=== PATIENT | male | born 1950 ===

== ENCOUNTER 2017-09-25 09:47 | Day surgery (SDC) | payer MEDICARE, MEDICAID ==
[2017-09-25 10:30] VITALS: BMI 25.9
[2017-09-25 10:47] VITALS: O2SAT 100
[2017-09-25] MEDS ORDERED: Propofol 10 mg/ml Inj (20 ML) ONE ×3 (11:55→12:49)
[2017-09-25] MEDS ORDERED: Lidocaine Hydrochloride 5 ML INJ ONE (11:55)
[2017-09-25] MEDS ORDERED: Lactated Ringer's 1,000 ML IV ONE (12:15)
[2017-09-25 13:54] VITALS: BP 123/69; PULSE 61; RESP 18; TEMP 97.2
== END 2017-09-25 13:50 | disposition home or self-care (01) ==
LOC: C.ENDO 09:47
PROVIDERS: ATTEND Internal Medicine Gastroenterology
DX: Z12.11 Encounter for screening for malignant neoplasm of colon (principal); D12.5 Benign neoplasm of sigmoid colon; D12.3 Benign neoplasm of transverse colon; K62.1 Rectal polyp; K64.8 Other hemorrhoids
CPT/HCPCS: 45385; 88305; J2704; J2765; J7120

== ENCOUNTER 2017-12-31 10:22 | Inpatient (IN) | payer MEDICARE, OTHER ==
[2017-12-31 11:14] LABS: BASO % 0.6 % (0.0-2.0); EOS # 0.2 K/uL (0.0-0.7); EOS % 2.5 % (0.0-4.0); HEMOGLOBIN 14.5 g/dL (12.0-18.0); LYMPH % 26.6 % (20.0-40.0); MEAN CORPUSCULAR HEMOGLOBIN 32.2 pg (27.0-31.0); MEAN CORPUSCULAR HGB CONC 33.9 g/dL (33.0-37.0); MEAN PLATELET VOLUME 8.3 fL (7.2-11.7); MONO # 0.5 K/uL (0.0-0.8); NEUT # 4.6 K/uL (1.8-7.0); NEUT % 63.3 % (50.0-75.0); RBC 4.49 Mil/uL (4.40-5.90); RED CELL DISTRIBUTION WIDTH 13.6 % (11.5-14.5); WHITE BLOOD COUNT 7.3 K/uL (4.8-10.8)
[2017-12-31 11:21] LABS: PROTHROMBIN TIME 10.8 SECONDS (9.7-12.2)
--- NOTE | 2017-12-31 11:21 | CT ---
Date of service: 12/31/2017 PROCEDURE: CT HEAD WITHOUT CONTRAST. HISTORY: Code Stroke COMPARISON: None available. TECHNIQUE: Axial computed tomography images were obtained through the head/brain without intravenous contrast. Radiation dose: Total exam DLP = 1064.29 mGy-cm. This CT exam was performed using one or more of the following dose reduction techniques: Automated exposure control, adjustment of the mA and/or kV according to patient size, and/or use of iterative reconstruction technique. FINDINGS: HEMORRHAGE: No intracranial hemorrhage. BRAIN: Normal mcgregor-white matter differentiation and density are appreciated throughout the cerebrum and cerebellum with the brainstem appearing unremarkable as well. There is no mass effect. There is no suspicious extra-axial fluid collection and the midline brain anatomy appears diffusely unremarkable. VENTRICLES: Unremarkable. No hydrocephalus. CALVARIUM: Unremarkable. PARANASAL SINUSES: Unremarkable as visualized. No significant inflammatory changes. MASTOID AIR CELLS: Unremarkable as visualized. No inflammatory changes. OTHER FINDINGS: None. IMPRESSION: Normal CT of the Head. Findings discussed with Dr. Valdivia with written down and read back verification 12/31/2017 11:14 a.m..
[2017-12-31 11:26] LABS: ALB/GLOB RATIO 1.4 (1.0-2.1); ALBUMIN 4.1 g/dL (3.5-5.0); ALT/SGPT 29 U/L (21-72); AST/SGOT 21 U/L (17-59); BLOOD UREA NITROGEN 18 mg/dL (9-20); CALCIUM 9.3 mg/dl (8.6-10.4); GFR NON-AFRICAN AMERICAN > 60; HDL CHOLESTEROL 57 mg/dL (30-70)
[2017-12-31 11:37] LABS: LDL CHOLESTEROL 147 mg/dL (0-129)
--- NOTE | 2017-12-31 12:14 | C.PDOC ---
History Of Present Illness 67 year old male presents to the ER as a code stroke requiring my immediate attention, sent to CT prior to my evaluation. Patient complains of left arm numbness around 0300 that happened upon awakening to go to the bathroom. Patient woke up today with arm numbness still present, had a cup of coffee and decided to come in. Denies chest pain, SOB, vision change, nausea, vomiting, headache, or weakness. Time Seen by Provider: 12/31/17 11:03 Chief Complaint (Nursing): Weakness/Neurological Deficit History Per: Patient History/Exam Limitations: no limitations Onset/Duration Of Symptoms: Hrs Current Symptoms Are (Timing): Still Present Activity At Onset Of Symptoms: Other (Had just woken up) Seizure Or Post-ictal Symptoms: None Fall Associated With With Symptoms: No Recent travel outside of the [place]: No - Symptoms Of CVA Associated Symptoms: denies: Impaired Speech, Seizure Activity, New Vision Deficit(Left), New Vision Deficit(Right), Decreased Ability To Walk, New Confusion Character Of Deficits: Left: Sensory Loss, Arm: Sensory Loss Past Medical History Reviewed: Historical Data, Nursing Documentation, Vital Signs Vital Signs: Last Vital Signs Temp 98.3 F 12/31/17 10:56 Pulse 76 12/31/17 12:40 Resp 16 12/31/17 12:40 BP 154/68 H 12/31/17 12:40 Pulse Ox 100 12/31/17 12:42 - Medical History PMH: Arthritis, Gastritis, Hypercholesterolemia (NOT TAKING MEDS) Denies: Chronic Kidney Disease Surgical History: Appendectomy, Endoscopy Family History: States: Unknown Family Hx - Social History Hx Alcohol Use: No Hx Substance Use: No Review Of Systems Constitutional: Negative for: Fever, Chills Eyes: Negative for: Vision Change Cardiovascular: Negative for: Chest Pain, Palpitations Respiratory: Negative for: Cough, Shortness of Breath Gastrointestinal: Negative for: Nausea, Vomiting Musculoskeletal: Negative for: Neck Pain Neurological: Positive for: Numbness. Negative for: Weakness Physical Exam - Physical Exam Appears: Non-toxic Skin: Normal Color, Warm, Dry Head: Atraumatic, Normacephalic Eye(s): bilateral: Normal Inspection, PERRL, EOMI Nose: Normal Oral Mucosa: Moist Neck: Normal, Supple Chest: Symmetrical, No Tenderness Cardiovascular: Rhythm Regular Respiratory: Normal Breath Sounds, No Rales, No Rhonchi, No Wheezing Gastrointestinal/Abdominal: Soft, No Tenderness Back: No CVA Tenderness Extremity: Normal ROM (x4) Neurological/Psych: Oriented x3, Normal Speech, Normal Cognition, Normal Cranial Nerves, Normal Motor, Other (Slight decreased sensation to left upper extremity) Gait: Steady ED Course And Treatment - Laboratory Results Result Diagrams: 12/31/17 11:09 12/31/17 11:09 ECG: Interpreted By Me, Viewed By Me ECG Rhythm: Sinus Rhythm ECG Interpretation: Normal Interpretation Of ECG: Poor R wave progression, no ST/T wave abnormalities Rate From EC O2 Sat by Pulse Oximetry: 100 (room air) Pulse Ox Interpretation: Normal NIHSS Stroke Scale 2 - Date/Time Evaluation Performed Date Performed: 12/31/17 When Was NIHSS Performed: Baseline - How Severe is the Stroke Level of Consciousness: 0=Alert LOC to Questions: 0=Both comments correct LOC to commands: 0=Obeys both correctly Best Gaze: 0=Normal Visual: 0=No visual loss Facial: 0=Normal Motor Arm - Left: 0=No drift Motor Arm - Right: 0=No drift Motor Leg - Left: 0=No drift Motor Leg - Right: 0=No drift Limb Ataxia: 0=Absent Sensory: 1=Mild to moderate loss Best Language: 0=No aphasia Dysarthia: 0=Normal articulation Extinction & Inattention (Neglect): 0=Normal, no object Score: 1 Severity Of Stroke: 1-4 = Minor Stroke (patient symptoms are minor and no focal weakness, discussed with Dr. Bullock and given vague symptoms the risk of tpa outweighs the benefit and no tpa administerd at this time.) Medical Decision Making Medical Decision Making: Assessment: CVA Case discussed with Dr. Bullock who states patient is not a TPA candidate. Disposition Discussed With : Emiliano Navarrete Doctor Will See Patient In The: Hospital Counseled Patient/Family Regarding: Studies Performed, Diagnosis - Disposition Disposition: HOSPITALIZED Disposition Time: 12:13 Condition: FAIR - Clinical Impression Clinical Impression: CVA (cerebral vascular accident) - Scribe Statement The provider has reviewed the documentation as recorded by the Scribe Willie Hopper All medical record entries made by the Scribe were at my direction and personally dictated by me. I have reviewed the chart and agree that the record accurately reflects my personal performance of the history, physical exam, medical decision making, and the department course for this patient. I have also personally directed, reviewed, and agree with the discharge instructions and disposition.
--- NOTE | 2017-12-31 12:20 | RAD ---
Date of service: 12/31/2017 HISTORY: Code Stroke COMPARISON: No prior. FINDINGS: LUNGS: Biapical fibrotic changes seen at the right greater left pulmonary apices. No alveolitis bilaterally. PLEURA: No significant pleural effusion identified, no pneumothorax apparent. CARDIOVASCULAR: Normal. OSSEOUS STRUCTURES: No significant abnormalities. VISUALIZED UPPER ABDOMEN: Normal. OTHER FINDINGS: None. IMPRESSION: No acute cardiopulmonary findings as discussed above. Biapical fibrotic changes are seen at the right greater than left.
--- NOTE | 2017-12-31 12:36 | CT ---
Date of service: 12/31/2017 PROCEDURE: CT Angiography of the Brain and Neck. HISTORY: arm numbness COMPARISON: None available. TECHNIQUE: CT angiography of the intracranial and neck arteries was performed. Coronal and sagittal maximum intensity projection reformatted images were generated. Contrast Dose: Visipaque 320, 100 cc Radiation dose:Total exam DLP = 632.89 mGy-cm. This CT exam was performed using one or more of the following dose reduction techniques: Automated exposure control, adjustment of the mA and/or kV according to patient size, and/or use of iterative reconstruction technique. FINDINGS: INTERNAL CEREBRAL ARTERIES: Unremarkable. The skull base, petrous, cavernous and supraclinoid segments are bilaterally widely patent. ANTERIOR CEREBRAL ARTERIES: Unremarkable. A1 and A2 segments are widely patent. Smaller distal branches unremarkable, as visualized. MIDDLE CEREBRAL ARTERIES: Unremarkable. M1 and M2 segments are widely patent. Perisylvian branches grossly symmetric. POSTERIOR CIRCULATION: Basilar Artery: Unremarkable. Distal Vertebral Arteries: Right dominant vertebrobasilar circulation. Posterior Cerebral Arteries: Unremarkable. Posterior Inferior Cerebellar Arteries: Unremarkable. NECK CTA: Common Carotid arteries: The bilateral common carotid appear widely patent from their origins to their bifurcations with no significant stenosis appreciated. No evidence to suggest common carotid artery dissection. Internal Carotid arteries: No significant stenosis is appreciated throughout the cervical internal carotid artery segments bilaterally and there is no evidence of dissection either. External Carotid arteries: Appear unremarkable bilaterally. Vertebral arteries: The bilateral vertebral arteries appear normal in caliber from their origins to their distal cervical segments. No significant stenosis or definite pattern of dissection. ANEURYSM/ VASCULAR MALFORMATIONS: None. OTHER FINDINGS: COPD incidentally noted. IMPRESSION: Unremarkable CT Angiography of the Brain and Neck.
[2017-12-31 13:25] VITALS: RESP 20
--- NOTE | 2017-12-31 13:32 | MRI ---
Date of service: 12/31/2017 PROCEDURE: MRI BRAIN WITHOUT CONTRAST HISTORY: cva COMPARISON: None available. TECHNIQUE: Multiplanar, multisequence MR images of the brain were obtained without intravenous contrast enhancement. FINDINGS: HEMORRHAGE: None DWI: No evidence of an acute or early subacute infarction. BRAIN PARENCHYMA: Minimal subcortical and periventricular white-matter change are appreciated at the bilateral frontal lobes reflecting trace chronic microangiopathy. There is also limited expansion of the ventricular sulcal and cisternal spaces compatible diffuse cerebral atrophy. These findings are proportional and are appropriate for the patient's stated age. There is no mass effect or cortical edema. Good corticomedullary differentiation is appreciated throughout the cerebrum and cerebellum. Brainstem is unremarkable appearing. No suspicious extra-axial collection appreciated. Midline brain anatomy appears grossly nonfocal. VENTRICLES: Unremarkable. No hydrocephalus. CRANIUM: Unremarkable. ORBITS: Grossly unremarkable. PARANASAL SINUSES/MASTOIDS: Right mastoid effusions identified. VASCULAR SYSTEM: Skull base flow voids intact. OTHER FINDINGS: None. IMPRESSION: Age-appropriate age related neuro degenerative changes. No definite acute intracranial findings by standard MRI criteria.
--- NOTE | 2017-12-31 14:26 | CP.PCM.HP ---
<Fabio Haro - Last Filed: 12/31/17 15:10> History of Present Illness - History of Present Illness History of Present Illness: PGY-[address] and [address] Navarrete Patient is a 67 year old male with PMHx arthritis, gastritis, HLD, who presented to ED following an epidsode of left arm numbness. The patient states that he woke up around 03:00 last night and to go to the bathroom and noticed that his left arm felt numb, from shoulder to finger tips. Patient went back to bed after noticing this and then woke up this morning with left arm numbness as well as weakness. In addition, the patient states that he was also having epigastric pain in the morning. Patient did not endorse any nausea, vomiting, diarrhea, fevers, or chills. At the time of examination, patient states that the arm weakness and abdominal pain have completely resolved, however he still is having numbness of the left arm. Of significance, patient has been a heavy smoker (about 1 pack/day) for 25-30 years. Pt's mother from [place] at the age of 71. Pt denies any chest pain, shortness of breath, nausea, vomiting , abdominal pain, diarrhea, headache, dizziness, weakness. SurgHx: Appendectomy Medical Hx: Arthritis, gastritis, HLD Allergies: NKA Social : Heavy smoker for 25-30 years, occasional alcohol consumption (latasha) Family history: Mother - [place] (75) Home Medications: Vitamin D PMD: Dr. Dunlap Code: Full Code Present on Admission - Present on Admission Any Indicators Present on Admission: No Review of Systems - Constitutional Constitutional: absent: Headache, Night Sweats - EENT Eyes: absent: Blurred Vision, Change in Vision Nose/Mouth/Throat: absent: Nasal Congestion, Nasal Discharge - Respiratory Respiratory: absent: Cough, Dyspnea - Gastrointestinal Gastrointestinal: absent: Abdominal Pain (epigastric pain resolved), Diarrhea, Nausea - Genitourinary Genitourinary: absent: Hematuria, Pyuria - Musculoskeletal Musculoskeletal: absent: Neck Pain, Stiffness - Neurological Neurological: Numbness. absent: Dizziness, Weakness (L arm weakness resolved) Additional comments: +left arm numbness - Psychiatric Psychiatric: absent: Anxiety, Depression Past Patient History - Past Medical History & Family History Past Medical History?: Yes - Past Social History Smoking Status: Light Smoker < 10 Cigarettes Daily - CARDIAC Hx Cardiac Disorders: Yes Hx Hypercholesterolemia: Yes (NOT TAKING MEDS) - PULMONARY Hx Respiratory Disorders: No - NEUROLOGICAL Hx Neurological Disorder: No - HEENT Hx HEENT Problems: No - RENAL Hx Chronic Kidney Disease: No - ENDOCRINE/METABOLIC Hx Endocrine Disorders: No - HEMATOLOGICAL/ONCOLOGICAL Hx Blood Disorders: No - INTEGUMENTARY Hx Dermatological Problems: No - MUSCULOSKELETAL/RHEUMATOLOGICAL Hx Arthritis: Yes Hx Falls: No - GASTROINTESTINAL Hx Gastrointestinal Disorders: Yes Hx Gastritis: Yes - GENITOURINARY/GYNECOLOGICAL Hx Genitourinary Disorders: No - PSYCHIATRIC Hx Substance Use: No - SURGICAL HISTORY Hx Appendectomy: Yes - ANESTHESIA Hx Anesthesia: Yes Hx Anesthesia Reactions: No Hx Malignant Hyperthermia: No Meds Allergies/Adverse Reactions: Allergies Allergy/AdvReac Type Severity Reaction Status Date / Time No Known Allergies Allergy Verified 12/31/17 10:58 Physical Exam - Head Exam Head Exam: ATRAUMATIC, NORMAL INSPECTION - Eye Exam Eye Exam: EOMI, Normal appearance Pupil Exam: NORMAL ACCOMODATION, PERRL - ENT Exam ENT Exam: Mucous Membranes Moist, Normal Exam - Neck Exam Neck exam: Positive for: Normal Inspection. Negative for: Tenderness - Respiratory Exam Respiratory Exam: Clear to Auscultation Bilateral, NORMAL BREATHING PATTERN. absent: Rales - Cardiovascular Exam Cardiovascular Exam: REGULAR RHYTHM, RRR, +S1, +S2. absent: Systolic Murmur - GI/Abdominal Exam GI & Abdominal Exam: Firm, Normal Bowel Sounds, Soft. absent: Distended, Tenderness - Extremities Exam Extremities exam: Negative for: joint swelling, pedal edema, tenderness - Back Exam Back exam: absent: CVA tenderness (L), vertebral tenderness - Neurological Exam Neurological exam: Alert, CN II-XII Intact, Normal Gait, Oriented x3 Additional comments: L arm dermatomes, sensation decreased but intact. Otherwise, sensation intact throughout - Expanded Neurological Exam Expanded Cranial nerves: EOM's Intact: Normal, Facial Palsey w/Forehead Movement: Normal , Facial Palsey w/o Forehead Movement: Normal, Facial Sensation: Normal, Gag Reflex: Normal, Nystagmus: Normal, Tongue Deviation: Normal Cerebellar Function: Finger to Nose: Normal Upper motor neuron: Pronator Drift: Normal Neuro motor strength exam: Left Upper Extremity: 5, Right Upper Extremity: 5, Left Lower Extremity: 5, Right Lower Extremity: 5 - Psychiatric Exam Psychiatric exam: Normal Affect, Normal Mood - Skin Skin Exam: Dry, Intact, Normal Color, Warm Results - Vital Signs Recent Vital Signs: Last Vital Signs Temp 97.8 F 12/31/17 13:23 Pulse 61 12/31/17 13:23 Resp 20 12/31/17 13:23 BP 145/85 12/31/17 13:23 Pulse Ox 97 12/31/17 13:23 - Labs Result Diagrams: 12/31/17 11:09 12/31/17 11:09 Labs: Laboratory Results - last 24 hr 12/31/17 12/31/17 12/31/17 10:56 11:09 11:09 WBC 7.3 RBC 4.49 Hgb 14.5 Hct 42.7 MCV 95.0 H MCH 32.2 H MCHC 33.9 RDW 13.6 Plt Count 284 MPV 8.3 Neut % (Auto) 63.3 Lymph % (Auto) 26.6 Twiggs % (Auto) 7.0 Eos % (Auto) 2.5 Baso % (Auto) 0.6 Neut # (Auto) 4.6 Lymph # (Auto) 2.0 Twiggs # (Auto) 0.5 Eos # (Auto) 0.2 Baso # (Auto) 0.0 PT 10.8 INR 1.0 APTT 33 Sodium Potassium Chloride Carbon Dioxide Anion Gap BUN Creatinine Est GFR ( Amer) Est GFR (Non-Af Amer) POC Glucose (mg/dL) 76 Random Glucose Hemoglobin A1c Calcium Total Bilirubin AST ALT Alkaline Phosphatase Troponin I Total Protein Albumin Globulin Albumin/Globulin Ratio Triglycerides Cholesterol LDL Cholesterol Direct HDL Cholesterol Blood Type Antibody Screen 12/31/17 12/31/17 12/31/17 11:09 11:09 11:09 WBC RBC Hgb Hct MCV MCH MCHC RDW Plt Count MPV Neut % (Auto) Lymph % (Auto) Twiggs % (Auto) Eos % (Auto) Baso % (Auto) Neut # (Auto) Lymph # (Auto) Twiggs # (Auto) Eos # (Auto) Baso # (Auto) PT INR APTT Sodium 143 Potassium 4.3 Chloride 106 Carbon Dioxide 30 Anion Gap 11 BUN 18 Creatinine 1.0 Est GFR ( Amer) > 60 Est GFR (Non-Af Amer) > 60 POC Glucose (mg/dL) Random Glucose 85 Hemoglobin A1c 5.7 Calcium 9.3 Total Bilirubin 1.0 AST 21 ALT 29 Alkaline Phosphatase 82 Troponin I < 0.0120 Total Protein 6.9 Albumin 4.1 Globulin 2.8 Albumin/Globulin Ratio 1.4 Triglycerides 132 Cholesterol 231 H LDL Cholesterol Direct 147 H HDL Cholesterol 57 Blood Type A POSITIVE Antibody Screen Negative Assessment & Plan - Assessment and Plan (Free Text) Assessment: Left arm numbness/weakness - DDx: TIA, stroke, ACS, Radiculopathy, brachial plexus/distal nerve impingement Neuro consulted, Dr. Bullock. Help appreciated. Imaging: -CT Head (12/31): Normal CT of the head -CT Head/Neck: (12/31): Unremarkable CT of the head and neck -CXR (12/31): No acute cardiopulmonary findings, Biapical findings are seen R>L -MRI Head (12/31): Appropriate age-related neuro degenerative changes. No definite acute intracranial findings by standard MRI criteria. -Echo - pending ROMIs: -Initial Enzymes negative; EKG: NSR, no ST or T changes -F/u ROMIs 17:00, 23:00 HLD -History of HLD, not on any home medications -Lipid Panel -Total CHOL: 231 -LDL: 147 -Smoking cessation discussed -Heart healthy diet Meds -Crestor 10mg PO HS -ASA 81mg po daily PPx: DVT PPx: SCDs GI: Not indicated Assessment/Plan d/w Dr. Rosalba Haro, PGY-1 Dispo: 67 year old male with risk factors for MA/stroke with L arm numbness. Code stroke called. CT/MRI show no acute findings. F/u ROMIs and admit for observation- patient likely safe for discharge tomorrow pending negative EKG/ enzymes. <Emiliano Navarrete - Last Filed: 12/31/17 18:06> Results - Vital Signs Recent Vital Signs: Last Vital Signs Temp 97.8 F 12/31/17 13:23 Pulse 66 12/31/17 15:22 Resp 20 12/31/17 13:23 BP 145/85 12/31/17 13:23 Pulse Ox 97 12/31/17 13:23 - Labs Result Diagrams: 12/31/17 11:09 12/31/17 11:09 Labs: Laboratory Results - last 24 hr 12/31/17 12/31/17 12/31/17 10:56 11:09 11:09 WBC 7.3 RBC 4.49 Hgb 14.5 Hct 42.7 MCV 95.0 H MCH 32.2 H MCHC 33.9 RDW 13.6 Plt Count 284 MPV 8.3 Neut % (Auto) 63.3 Lymph % (Auto) 26.6 Twiggs % (Auto) 7.0 Eos % (Auto) 2.5 Baso % (Auto) 0.6 Neut # (Auto) 4.6 Lymph # (Auto) 2.0 Twiggs # (Auto) 0.5 Eos # (Auto) 0.2 Baso # (Auto) 0.0 PT 10.8 INR 1.0 APTT 33 Sodium Potassium Chloride Carbon Dioxide Anion Gap BUN Creatinine Est GFR ( Amer) Est GFR (Non-Af Amer) POC Glucose (mg/dL) 76 Random Glucose Hemoglobin A1c Calcium Total Bilirubin AST ALT Alkaline Phosphatase Troponin I Total Protein Albumin Globulin Albumin/Globulin Ratio Triglycerides Cholesterol LDL Cholesterol Direct HDL Cholesterol Blood Type Antibody Screen 12/31/17 12/31/17 12/31/17 11:09 11:09 11:09 WBC RBC Hgb Hct MCV MCH MCHC RDW Plt Count MPV Neut % (Auto) Lymph % (Auto) Twiggs % (Auto) Eos % (Auto) Baso % (Auto) Neut # (Auto) Lymph # (Auto) Twiggs # (Auto) Eos # (Auto) Baso # (Auto) PT INR APTT Sodium 143 Potassium 4.3 Chloride 106 Carbon Dioxide 30 Anion Gap 11 BUN 18 Creatinine 1.0 Est GFR ( Amer) > 60 Est GFR (Non-Af Amer) > 60 POC Glucose (mg/dL) Random Glucose 85 Hemoglobin A1c 5.7 Calcium 9.3 Total Bilirubin 1.0 AST 21 ALT 29 Alkaline Phosphatase 82 Troponin I < 0.0120 Total Protein 6.9 Albumin 4.1 Globulin 2.8 Albumin/Globulin Ratio 1.4 Triglycerides 132 Cholesterol 231 H LDL Cholesterol Direct 147 H HDL Cholesterol 57 Blood Type A POSITIVE Antibody Screen Negative 12/31/17 17:06 WBC RBC Hgb Hct MCV MCH MCHC RDW Plt Count MPV Neut % (Auto) Lymph % (Auto) Twiggs % (Auto) Eos % (Auto) Baso % (Auto) Neut # (Auto) Lymph # (Auto) Twiggs # (Auto) Eos # (Auto) Baso # (Auto) PT INR APTT Sodium Potassium Chloride Carbon Dioxide Anion Gap BUN Creatinine Est GFR ( Amer) Est GFR (Non-Af Amer) POC Glucose (mg/dL) 105 Random Glucose Hemoglobin A1c Calcium Total Bilirubin AST ALT Alkaline Phosphatase Troponin I Total Protein Albumin Globulin Albumin/Globulin Ratio Triglycerides Cholesterol LDL Cholesterol Direct HDL Cholesterol Blood Type Antibody Screen Attending/Attestation - Attestation I have personally seen and examined this patient.: Yes I have fully participated in the care of the patient.: Yes I have reviewed all pertinent clinical information: Yes Notes (Text): 12/31/17 18:05 Medical attending: Patient was seen and examined by me, agrees the above note by the medical oncology physician. Patient was seen and examined by me, the patient was not in any acute distress when he came and saw him. When I was notified by the ER, he was endorsed to me that the patient had both left arm weakness and left leg weakness however when I came and saw him and when I brought a draw frame runner he said that his only concern was with his left arm and hand that was feeling numb. Patient was readily able to walk in the hallway with me. He is able to elevate both his left and right arm, with 5/5 muscle strength - he did not have any drifting he had very strong hand grasps bilaterally was able to flex and extend his elbows. He was also able to stand on his toes without loss of balance. He denied having chest pain, denied shortness of breath, denied palpitations. He also denied having headaches, denied dizziness, denied abdominal pain Before coming up to the floors, the patient underwent an MRI which was negative for any acute stroke. He also had a CT done urgency room which was negative as well. The CTA of head and neck was stable and did not show stenosis His risk factors include heavy smoking, and hypertension. Lipid panel was done which showed that he does have elevated cholesterol. For the time being the patient will be on a statin, aspirin, and low dose blood pressure medication The patient's son was present at bedside. At this time were to get additional cardiac enzymes since he did come in with left arm numbness. I looked at the EKG looked okay to me nevertheless we'll monitor the patient on telemetry It is possible the patient could go home after he gets an echocardiogram tomorrow Thank you very much, Emiliano Navarrete 12/31/17 18:06
--- NOTE | 2017-12-31 18:40 | CP.PCM.CON ---
History of Present Illness - History of Present Illness History of Present Illness: Neurology Consultation Note: Mr. Corrigan is a 67-year-old man with no significant past medical history, with a 30 pack-year smoking history, who presented to the ED this morning with left arm numbness and subjective heaviness. Last night he was normal. Non-contrast CT scan of the head was normal. MRI brain did not show any acute findings. CTA of the head/neck did not show any vascular stenosis or occlusion. He continues to complain of left arm heaviness and sensory changes. Review of Systems - Review of Systems All systems: reviewed and no additional remarkable complaints except Past Patient History - Past Medical History & Family History Past Medical History?: Yes - Past Social History Smoking Status: Light Smoker < 10 Cigarettes Daily - CARDIAC Hx Cardiac Disorders: Yes Hx Hypercholesterolemia: Yes (NOT TAKING MEDS) - PULMONARY Hx Respiratory Disorders: No - NEUROLOGICAL Hx Neurological Disorder: No - HEENT Hx HEENT Problems: No - RENAL Hx Chronic Kidney Disease: No - ENDOCRINE/METABOLIC Hx Endocrine Disorders: No - HEMATOLOGICAL/ONCOLOGICAL Hx Blood Disorders: No - INTEGUMENTARY Hx Dermatological Problems: No - MUSCULOSKELETAL/RHEUMATOLOGICAL Hx Arthritis: Yes Hx Falls: No - GASTROINTESTINAL Hx Gastrointestinal Disorders: Yes Hx Gastritis: Yes - GENITOURINARY/GYNECOLOGICAL Hx Genitourinary Disorders: No - PSYCHIATRIC Hx Substance Use: No - SURGICAL HISTORY Hx Appendectomy: Yes - ANESTHESIA Hx Anesthesia: Yes Hx Anesthesia Reactions: No Hx Malignant Hyperthermia: No Meds Allergies/Adverse Reactions: Allergies Allergy/AdvReac Type Severity Reaction Status Date / Time No Known Allergies Allergy Verified 12/31/17 10:58 - Medications Medications: Current Medications Amlodipine Besylate (Norvasc) 5 mg PO DAILY [facility] Aspirin (Ecotrin) 81 mg PO DAILY [facility] Nicotine (Nicoderm Cq) 1 patch TD DAILY [facility] Last Admin: 12/31/17 17:38 Dose: 1 patch Rosuvastatin Calcium (Crestor) 10 mg PO HS [facility] Physical Exam - Neurological Exam Neurological exam: Alert, CN II-XII Intact, Motor Sensory Deficit, Normal Gait, Oriented x3, Reflexes Normal Additional comments: decreased sensation on the left arm. NIHSS = 1 Results - Vital Signs Recent Vital Signs: Last Vital Signs Temp 97.6 F 12/31/17 15:15 Pulse 66 12/31/17 15:22 Resp 20 09/19/18 15:15 BP 113/72 12/31/17 15:15 Pulse Ox 98 12/31/17 15:15 - Labs Result Diagrams: 12/31/17 11:09 12/31/17 11:09 Labs: Laboratory Results - last 24 hr 12/31/17 12/31/17 12/31/17 10:56 11:09 11:09 WBC 7.3 RBC 4.49 Hgb 14.5 Hct 42.7 MCV 95.0 H MCH 32.2 H MCHC 33.9 RDW 13.6 Plt Count 284 MPV 8.3 Neut % (Auto) 63.3 Lymph % (Auto) 26.6 [place] % (Auto) 7.0 Eos % (Auto) 2.5 Baso % (Auto) 0.6 Neut # (Auto) 4.6 Lymph # (Auto) 2.0 [place] # (Auto) 0.5 Eos # (Auto) 0.2 Baso # (Auto) 0.0 PT 10.8 INR 1.0 APTT 33 Sodium Potassium Chloride Carbon Dioxide Anion Gap BUN Creatinine Est GFR ( Amer) Est GFR (Non-Af Amer) POC Glucose (mg/dL) 76 Random Glucose Hemoglobin A1c Calcium Total Bilirubin AST ALT Alkaline Phosphatase Troponin I Total Protein Albumin Globulin Albumin/Globulin Ratio Triglycerides Cholesterol LDL Cholesterol Direct HDL Cholesterol Blood Type Antibody Screen 12/31/17 12/31/17 12/31/17 11:09 11:09 11:09 WBC RBC Hgb Hct MCV MCH MCHC RDW Plt Count MPV Neut % (Auto) Lymph % (Auto) [place] % (Auto) Eos % (Auto) Baso % (Auto) Neut # (Auto) Lymph # (Auto) [place] # (Auto) Eos # (Auto) Baso # (Auto) PT INR APTT Sodium 143 Potassium 4.3 Chloride 106 Carbon Dioxide 30 Anion Gap 11 BUN 18 Creatinine 1.0 Est GFR ( Amer) > 60 Est GFR (Non-Af Amer) > 60 POC Glucose (mg/dL) Random Glucose 85 Hemoglobin A1c 5.7 Calcium 9.3 Total Bilirubin 1.0 AST 21 ALT 29 Alkaline Phosphatase 82 Troponin I < 0.0120 Total Protein 6.9 Albumin 4.1 Globulin 2.8 Albumin/Globulin Ratio 1.4 Triglycerides 132 Cholesterol 231 H LDL Cholesterol Direct 147 H HDL Cholesterol 57 Blood Type A POSITIVE Antibody Screen Negative 09/19/18 17:06 WBC RBC Hgb Hct MCV MCH MCHC RDW Plt Count MPV Neut % (Auto) Lymph % (Auto) [place] % (Auto) Eos % (Auto) Baso % (Auto) Neut # (Auto) Lymph # (Auto) [place] # (Auto) Eos # (Auto) Baso # (Auto) PT INR APTT Sodium Potassium Chloride Carbon Dioxide Anion Gap BUN Creatinine Est GFR ( Amer) Est GFR (Non-Af Amer) POC Glucose (mg/dL) 105 Random Glucose Hemoglobin A1c Calcium Total Bilirubin AST ALT Alkaline Phosphatase Troponin I Total Protein Albumin Globulin Albumin/Globulin Ratio Triglycerides Cholesterol LDL Cholesterol Direct HDL Cholesterol Blood Type Antibody Screen Assessment & Plan (1) TIA (transient ischemic attack) Assessment and Plan: MRI does not show an infarct, therefor this is not a stroke. He likely had either a TIA, or perhaps a peripheral compression neuropathy. Continue Aspirin 81 mg daily, Crestor 10 mg daily for HLD, and follow up on cardiac studies. PT/ OT eval and treat if needed. If the symptoms do not resolve in 2 weeks, we can obtain nerve conduction studies of the left arm. Thank you. Status: Acute
[2017-12-31 21:09] LABS: CK-MB 0.99 ng/mL (0.0-3.38); TROPONIN I 0.022 ng/mL (0.00-0.120)
[2018-01-01 03:14] LABS: CK-MB 0.99 ng/mL (0.0-3.38)
[2018-01-01 06:47] LABS: BASO % 0.6 % (0.0-2.0); EOS # 0.2 K/uL (0.0-0.7); EOS % 3.5 % (0.0-4.0); HEMOGLOBIN 13.3 g/dL (12.0-18.0); LYMPH # 1.5 K/uL (1.0-4.3); LYMPH % 26.9 % (20.0-40.0); MEAN CELL VOLUME 94.8 fL (80.0-94.0); MEAN CORPUSCULAR HEMOGLOBIN 31.8 pg (27.0-31.0); MEAN CORPUSCULAR HGB CONC 33.6 g/dL (33.0-37.0); MEAN PLATELET VOLUME 8.7 fL (7.2-11.7); MONO # 0.5 K/uL (0.0-0.8); MONO % 8.8 % (0.0-10.0); NEUT # 3.4 K/uL (1.8-7.0); NEUT % 60.2 % (50.0-75.0); NRBC % 0.1 % (0.0-2.0); RBC 4.19 Mil/uL (4.40-5.90); RED CELL DISTRIBUTION WIDTH 13.6 % (11.5-14.5); WHITE BLOOD COUNT 5.7 K/uL (4.8-10.8)
[2018-01-01 07:18] LABS: ALB/GLOB RATIO 1.4 (1.0-2.1); ALBUMIN 3.5 g/dL (3.5-5.0); ALT/SGPT 28 U/L (21-72); AST/SGOT 19 U/L (17-59); BLOOD UREA NITROGEN 19 mg/dL (9-20); CALCIUM 9.1 mg/dl (8.6-10.4); GFR NON-AFRICAN AMERICAN > 60
[2018-01-01 07:21] VITALS: BP 123/73; PULSE 61; TEMP 97.8; O2SAT 98
--- NOTE | 2018-01-01 15:49 | CP.PCM.DIS ---
<Liam Au - Last Filed: 01/01/18 15:37> Provider - Provider Date of Admission: 12/31/17 12:12 Attending physician: Emiliano Navarrete DO Time Spent in preparation of Discharge (in minutes): 40 Hospital Course - Lab Results Lab Results: Most Recent Lab Values WBC 5.7 K/uL (4.8-10.8) 01/01/18 06:37 RBC 4.19 Mil/uL (4.40-5.90) L 01/01/18 06:37 Hgb 13.3 g/dL (12.0-18.0) 01/01/18 06:37 Hct 39.7 % (35.0-51.0) 01/01/18 06:37 MCV 94.8 fL (80.0-94.0) H 01/01/18 06:37 MCH 31.8 pg (27.0-31.0) H 01/01/18 06:37 MCHC 33.6 g/dL (33.0-37.0) 01/01/18 06:37 RDW 13.6 % (11.5-14.5) 01/01/18 06:37 Plt Count 267 K/uL (130-400) 01/01/18 06:37 MPV 8.7 fL (7.2-11.7) 01/01/18 06:37 Neut % (Auto) 60.2 % (50.0-75.0) 01/01/18 06:37 Lymph % (Auto) 26.9 % (20.0-40.0) 01/01/18 06:37 [place] % (Auto) 8.8 % (0.0-10.0) 01/01/18 06:37 Eos % (Auto) 3.5 % (0.0-4.0) 01/01/18 06:37 Baso % (Auto) 0.6 % (0.0-2.0) 01/01/18 06:37 Neut # (Auto) 3.4 K/uL (1.8-7.0) 01/01/18 06:37 Lymph # (Auto) 1.5 K/uL (1.0-4.3) 01/01/18 06:37 [place] # (Auto) 0.5 K/uL (0.0-0.8) 01/01/18 06:37 Eos # (Auto) 0.2 K/uL (0.0-0.7) 01/01/18 06:37 Baso # (Auto) 0.0 K/uL (0.0-0.2) 01/01/18 06:37 PT 10.8 SECONDS (9.7-12.2) 12/31/17 11:09 INR 1.0 12/31/17 11:09 APTT 33 SECONDS (21-34) 12/31/17 11:09 Sodium 140 mmol/L (132-148) 01/01/18 06:37 Potassium 3.8 mmol/L (3.6-5.2) 01/01/18 06:37 Chloride 106 mmol/L (98-107) 01/01/18 06:37 Carbon Dioxide 28 mmol/L (22-30) 01/01/18 06:37 Anion Gap 10 (10-20) 01/01/18 06:37 BUN 19 mg/dL (9-20) 01/01/18 06:37 Creatinine 0.9 mg/dL (0.8-1.5) 01/01/18 06:37 Est GFR ( Amer) > 60 01/01/18 06:37 Est GFR (Non-Af Amer) > 60 01/01/18 06:37 POC Glucose (mg/dL) 97 mg/dL (65-110) 01/01/18 06:53 Random Glucose 97 mg/dL (75-110) 01/01/18 06:37 Hemoglobin A1c 5.7 % (4.2-6.5) 12/31/17 11:09 Calcium 9.1 mg/dl (8.6-10.4) 01/01/18 06:37 Phosphorus 3.5 mg/dL (2.5-4.5) 01/01/18 06:37 Magnesium 2.1 mg/dL (1.6-2.3) 01/01/18 06:37 Total Bilirubin 1.4 mg/dL (0.2-1.3) H 01/01/18 06:37 AST 19 U/L (17-59) 01/01/18 06:37 ALT 28 U/L (21-72) 01/01/18 06:37 Alkaline Phosphatase 75 U/L (38-126) 01/01/18 06:37 Total Creatine Kinase 78 U/L (55-170) 01/01/18 02:48 CK-MB (Mass) 0.99 ng/mL (0.0-3.38) 01/01/18 02:48 Troponin I < 0.0120 ng/mL (0.00-0.120) 01/01/18 02:48 Total Protein 6.0 g/dL (6.3-8.3) L 01/01/18 06:37 Albumin 3.5 g/dL (3.5-5.0) 01/01/18 06:37 Globulin 2.5 gm/dL (2.2-3.9) 01/01/18 06:37 Albumin/Globulin Ratio 1.4 (1.0-2.1) 01/01/18 06:37 Triglycerides 132 mg/dL (0-149) 12/31/17 11:09 Cholesterol 231 mg/dL (0-199) H 12/31/17 11:09 LDL Cholesterol Direct 147 mg/dL (0-129) H 12/31/17 11:09 HDL Cholesterol 57 mg/dL (30-70) 12/31/17 11:09 Blood Type A POSITIVE 12/31/17 11:09 Antibody Screen Negative 12/31/17 11:09 - Hospital Course Hospital Course: Mr Corrigan is a 67 year old male with past medical history of arthritis , gastritis, hyperlipidemia, who presented to the ED following an episode of left arm numbness. The patient states that he woke up around 03:00 the night prior to admission and went to the bathroom when he noticed that his left arm felt numb, from shoulder to finger tips. Patient went back to bed after noticing this and then woke up this morning with left arm numbness as well as weakness. In addition, the patient states that he was also having epigastric pain in the morning. Patient did not endorse any nausea, vomiting, diarrhea, fevers, or chills. At the time of examination, patient stated that the arm weakness and abdominal pain completely resolved, however he still is having numbness of the left arm. Of significance, patient has been a heavy smoker ( about 1 pack/day) for 25-30 years. Patient's mother from [place] at the age of 71. He denied any chest pain, shortness of breath, nausea, vomiting, abdominal pain, diarrhea, headache, dizziness, weakness. CT of the head, CTA head/neck, MRI head were all unremarkable. Neurology (Dr. Bullock) was consulted. Per Neurology recommendations, patient likely had either a TIA, or perhaps a peripheral compression neuropathy. He was continued on Aspirin 81 mg daily, Crestor 10 mg daily for hyperlipidemia. He was instructed to follow up with Neurology within 2 weeks, if the symptoms do not resolve, for possible nerve conduction studies of the left arm. Referral has been provided. ONDINA panel x3 were negative. Echocardiogram was ordered. Patient instructed to follow up as outpatient within 1-2 weeks of discharge for detailed results. Patient's symptoms completely resolved while on the medical floor. He denied any numbness or tingling of the extremities. No headaches, dizziness, changes in vision, chest pain, palpitations, abdominal pain, nausea/vomiting/diarrhea/ constipation. No other acute complaints. Patient is medically stable for discharge, per Dr. Navarrete. He is instructed to follow with his primary care doctor (Dr. Dunlap) within 1-2 weeks of discharge for continued care and follow up results of his echocardiogram. Patient to be discharged on the follow medication for his high cholesterol. Please take as prescribed: 1. Simvastatin 10 mg 1 tablet daily before bedtime Please return to the ED for any emergency. Take care and be well. This is a summary of hospital course. For full detail, please refer to EMR. Discharge Exam - Head Exam Head Exam: ATRAUMATIC, NORMAL INSPECTION, NORMOCEPHALIC - Eye Exam Eye Exam: EOMI, Normal appearance Pupil Exam: NORMAL ACCOMODATION - ENT Exam ENT Exam: Mucous Membranes Moist, Normal Exam - Neck Exam Neck exam: Full Rom, Normal Inspection - Respiratory Exam Respiratory Exam: Clear to PA & Lateral, NORMAL BREATHING PATTERN, UNREMARKABLE. absent: Rales, Rhonchi, Wheezes, Respiratory Distress, Stridor - Cardiovascular Exam Cardiovascular Exam: REGULAR RHYTHM, +S1, +S2 - GI/Abdominal Exam GI & Abdominal Exam: Normal Bowel Sounds, Soft, Unremarkable. absent: Distended , Firm, Guarding, Rebound, Rigid, Tenderness - Extremities Exam Extremities exam: normal capillary refill, normal inspection, pedal pulses present - Back Exam Back exam: NORMAL INSPECTION. absent: CVA tenderness (L), CVA tenderness (R), paraspinal tenderness - Neurological Exam Neurological exam: Alert, Normal Gait, Oriented x3, Reflexes Normal - Psychiatric Exam Psychiatric exam: Normal Affect, Normal Mood - Skin Skin Exam: Dry, Intact, Normal Color, Warm Discharge Plan - Discharge Medications Prescriptions: Simvastatin 10 mg PO HS #30 tablet - Follow Up Plan Condition: FAIR Disposition: HOME/ ROUTINE Instructions: Heart Healthy Diet, Smoking: Not Just Harmful to Your Lungs and Heart, Transient Ischemic Attack (DC), Quitting Smoking, Simvastatin Additional Instructions: Patient is medically stable for discharge, per Dr. Navarrete. He is instructed to follow with his primary care doctor (Dr. Dunlap) within 1-2 weeks of discharge for continued care and follow up results of his echocardiogram. Patient to be discharged on the follow medication for his high cholesterol. Please take as prescribed: 1. Simvastatin 10 mg 1 tablet daily before bedtime If numbness of the L arm persist or worsen within the next 2 weeks, please follow up with Neurology (Dr. Bullock) in his office. Referral has been provided. Please return to the ED for any emergency. Take care and be well. El paciente es mdicamente estable para el piedad, segn el Dr. Navarrete. Se lo instruye a seguir con arthur mdico de atencin primaria (Dr. Dunlap) dentro de 1 a 2 semanas despus del piedad para continuar la atencin y los resultados de seguimiento de arthur ecocardiograma. Paciente a ser dado de piedad en el siguiente medicamento por arthur colesterol alto. Por favor, tome juanis se indica: 1. Simvastatin 10 mg 1 tableta diaria antes de acostarse Si el entumecimiento del brazo L persiste o empeora en las prximas 2 semanas, siga con Neurology (Dr. Bullock) en arthur consultorio. La referencia huffman sido proporcionada. Por favor regrese al ED para cualquier emergencia. Cudate y mantente sravan. Referrals: Edwin Bullock MD [Staff Provider] - Ashwin Dunlap MD [Staff Provider] - <Emiliano Navarrete - Last Filed: 01/01/18 16:56> Provider - Provider Date of Admission: 12/31/17 12:12 Attending physician: Emiliano Navarrete [place] [facility] Course - Lab Results Lab Results: Most Recent Lab Values WBC 5.7 K/uL (4.8-10.8) 01/01/18 06:37 RBC 4.19 Mil/uL (4.40-5.90) L 01/01/18 06:37 Hgb 13.3 g/dL (12.0-18.0) 01/01/18 06:37 Hct 39.7 % (35.0-51.0) 01/01/18 06:37 MCV 94.8 fL (80.0-94.0) H 01/01/18 06:37 MCH 31.8 pg (27.0-31.0) H 01/01/18 06:37 MCHC 33.6 g/dL (33.0-37.0) 01/01/18 06:37 RDW 13.6 % (11.5-14.5) 01/01/18 06:37 Plt Count 267 K/uL (130-400) 01/01/18 06:37 MPV 8.7 fL (7.2-11.7) 01/01/18 06:37 Neut % (Auto) 60.2 % (50.0-75.0) 01/01/18 06:37 Lymph % (Auto) 26.9 % (20.0-40.0) 01/01/18 06:37 [place] % (Auto) 8.8 % (0.0-10.0) 01/01/18 06:37 Eos % (Auto) 3.5 % (0.0-4.0) 01/01/18 06:37 Baso % (Auto) 0.6 % (0.0-2.0) 01/01/18 06:37 Neut # (Auto) 3.4 K/uL (1.8-7.0) 01/01/18 06:37 Lymph # (Auto) 1.5 K/uL (1.0-4.3) 01/01/18 06:37 [place] # (Auto) 0.5 K/uL (0.0-0.8) 01/01/18 06:37 Eos # (Auto) 0.2 K/uL (0.0-0.7) 01/01/18 06:37 Baso # (Auto) 0.0 K/uL (0.0-0.2) 01/01/18 06:37 PT 10.8 SECONDS (9.7-12.2) 12/31/17 11:09 INR 1.0 12/31/17 11:09 APTT 33 SECONDS (21-34) 12/31/17 11:09 Sodium 140 mmol/L (132-148) 01/01/18 06:37 Potassium 3.8 mmol/L (3.6-5.2) 01/01/18 06:37 Chloride 106 mmol/L (98-107) 01/01/18 06:37 Carbon Dioxide 28 mmol/L (22-30) 01/01/18 06:37 Anion Gap 10 (10-20) 01/01/18 06:37 BUN 19 mg/dL (9-20) 01/01/18 06:37 Creatinine 0.9 mg/dL (0.8-1.5) 01/01/18 06:37 Est GFR ( Amer) > 60 01/01/18 06:37 Est GFR (Non-Af Amer) > 60 01/01/18 06:37 POC Glucose (mg/dL) 97 mg/dL (65-110) 01/01/18 06:53 Random Glucose 97 mg/dL (75-110) 01/01/18 06:37 Hemoglobin A1c 5.7 % (4.2-6.5) 12/31/17 11:09 Calcium 9.1 mg/dl (8.6-10.4) 01/01/18 06:37 Phosphorus 3.5 mg/dL (2.5-4.5) 01/01/18 06:37 Magnesium 2.1 mg/dL (1.6-2.3) 01/01/18 06:37 Total Bilirubin 1.4 mg/dL (0.2-1.3) H 01/01/18 06:37 AST 19 U/L (17-59) 01/01/18 06:37 ALT 28 U/L (21-72) 01/01/18 06:37 Alkaline Phosphatase 75 U/L (38-126) 01/01/18 06:37 Total Creatine Kinase 78 U/L (55-170) 01/01/18 02:48 CK-MB (Mass) 0.99 ng/mL (0.0-3.38) 01/01/18 02:48 Troponin I < 0.0120 ng/mL (0.00-0.120) 01/01/18 02:48 Total Protein 6.0 g/dL (6.3-8.3) L 01/01/18 06:37 Albumin 3.5 g/dL (3.5-5.0) 01/01/18 06:37 Globulin 2.5 gm/dL (2.2-3.9) 01/01/18 06:37 Albumin/Globulin Ratio 1.4 (1.0-2.1) 01/01/18 06:37 Triglycerides 132 mg/dL (0-149) 12/31/17 11:09 Cholesterol 231 mg/dL (0-199) H 12/31/17 11:09 LDL Cholesterol Direct 147 mg/dL (0-129) H 12/31/17 11:09 HDL Cholesterol 57 mg/dL (30-70) 12/31/17 11:09 Blood Type A POSITIVE 12/31/17 11:09 Antibody Screen Negative 12/31/17 11:09 Attending/Attestation - Attestation I have personally seen and examined this patient.: Yes I have fully participated in the care of the patient.: Yes I have reviewed all pertinent clinical information, including history, physical exam and plan: Yes Notes (Text): 01/01/18 16:56 Medical Consult: Patient was seen and examined by me, reviewed the above note by the medical coding specialist. We saw the patient together. The patient was actively ambulating in the room and in the hallway. He reported that the sensation in the left hand had improved and by the time I saw him this morning had resolved. As mentioned previously the patient had MRI of the head that was unremarkable, it is possible the patient had TIA or perhaps he was laying in bed for nerve impingement. He's had negative cardiac enzymes, negative CTA of the head and neck He does have elevated cholesterol panel, and the patient also is an active smoker as well. We advised him to take a low dose cholesterol medication for the time being as well as try to stop with cigarette smoking as these are risk factors Emiliano Navarrete
--- NOTE | 2018-01-01 17:25 | IP.NPCORE ---
Stroke Core Measure - CQM - Stroke Antithrombotic Prescribed: Yes Contranindication/Reason for not providing: Other If Other selected, reason for not providing: as per neurologist not a stroke Anticoagulation Prescribed for Atrial Flutter, Atrial Fibrillation and History of:: Not Applicable Statin prescribed: Yes
--- NOTE | 2018-01-01 17:43 | CARD ---
APPROVED REPORT Date of service: 01/01/2018 EXAM: Two-dimensional and M-mode echocardiogram with Doppler and color Doppler. Other Information Quality : GoodRhythm : INDICATION CVA/TIA RISK FACTORS Hyperlipidemia 2D DIMENSIONS IVSd1.1 (0.7-1.1cm)Aortic Root (2D)3.0 (2.0-3.7cm) LVDd3.8 (3.9-5.9cm)PWd1.0 (0.7-1.1cm) LVDs2.4 (2.5-4.0cm)FS (%) 36.5 % LVEF (%)67.1 (>50%) M-Mode DIMENSIONS RVDd1.21 (2.1-3.2cm)Left Atrium (MM)3.69 (2.5-4.0cm) IVSd0.74 (0.7-1.1cm)Aortic Root2.95 (2.2-3.7cm) LVDd5.06 (4.0-5.6cm)Aortic Cusp Exc.1.92 (1.5-2.0cm) PWd1.00 (0.7-1.1cm)FS (%) 49 % LVDs2.56 (2.0-3.8cm)LVEF (%)70 (>50%) Mitral Valve MV E Qhkgugph87.9cm/sMV A Qieepfbl83.5cm/sE/A ratio1.4 TDI E/Lateral E'0.0E/Medial E'0.0 Tricuspid Valve TR Peak [id number]/sTR Peak [id number] LEFT VENTRICLE The left ventricle is normal size. There is normal left ventricular wall thickness. The left ventricular function is normal. The left ventricular ejection fraction is within the normal range. There is normal LV segmental wall motion. The left ventricular diastolic function is normal. RIGHT VENTRICLE The right ventricle is normal size. There is normal right ventricular wall thickness. The right ventricular systolic function is normal. ATRIA The left atrium size is normal. The right atrium size is normal. AORTIC VALVE The aortic valve is not well visualized. No aortic regurgitation is present. There is no aortic valvular stenosis. MITRAL VALVE The mitral valve is normal in structure. There is no evidence of mitral valve prolapse. There is no mitral valve stenosis. There is no mitral valve regurgitation noted. TRICUSPID VALVE The tricuspid valve is normal in structure. There is trace tricuspid regurgitation. There is mild pulmonary hypertension. PULMONIC VALVE The pulmonary valve is normal in structure. There is trace pulmonic valvular regurgitation. GREAT VESSELS The aortic root is normal in size. The IVC is normal in size and collapses >50% with inspiration. <Conclusion> The left ventricle is normal size. There is normal left ventricular wall thickness. The left ventricular function is normal. The left ventricular ejection fraction is within the normal range. There is normal LV segmental wall motion. The left ventricular diastolic function is normal. There is mild pulmonary hypertension.
--- NOTE | 2018-01-01 21:42 | CARD ---
APPROVED REPORT Date of service: 12/31/2017 EKG Measurement Heart [id number] <Conclusion> Normal sinus rhythm Normal ECG
--- NOTE | 2018-01-01 21:50 | CARD ---
APPROVED REPORT Date of service: 12/31/2017 EKG Measurement Heart [id number] <Conclusion> Normal sinus rhythm Septal infarct, age undetermined Abnormal ECG
== END 2018-01-01 14:40 | disposition home or self-care (01) | DRG 69 ==
LOC: C.ER 10:22 → C.9E 12:12 → C.6T 12:30
PROVIDERS: ADMIT Hospitalist; ATTEND Hospitalist
DX: G45.9 Transient cerebral ischemic attack, unspecified (principal); G62.89 Other specified polyneuropathies; E78.5 Hyperlipidemia, unspecified; E78.00 Pure hypercholesterolemia, unspecified; M19.90 Unspecified osteoarthritis, unspecified site; F17.200 Nicotine dependence, unspecified, uncomplicated; Z79.82 Long term (current) use of aspirin; Z79.899 Other long term (current) drug therapy; Z90.49 Acquired absence of other specified parts of digestive tract